=== PATIENT | male | born 1995 | race Caucasian/White ===

== ENCOUNTER 2017-01-20 22:33 | Emergency (ER) | payer OTHER ==
[2017-01-20] MEDS ORDERED: NS 1,000 ML IV ONE (22:45)
--- NOTE | 2017-01-20 22:52 | EDPHY ---
General Narrative: CHIEF COMPLAINT: Syncope, closed head injury HISTORY OF PRESENT ILLNESS: Patient says that he had to beers this evening and was starting to smoke marijuana. He said he "took one hit and was sitting down when I tried to stand up and went down." He describes a possible syncopal episode while standing from a seated position. He does not know the exact details of the event. He struck his forehead on the wall and then on the ground. He has no headache. He has no neck pain or stiffness. No nausea or vomiting. No confusion at this point but is amnestic to events. Amnesia consist of approximately 5-10 minutes. No injury elsewhere alcohol intake is usual for him and not excessive for him. No other substances use. Previous history of 2 episodes of syncope that were diagnosed as a vasovagal episode by joint sealer. No other associated complaints or modifying factors. REVIEW OF SYSTEMS: Ten systems reviewed and are negative unless otherwise noted in the HPI PERTINENT MEDICAL HISTORY: Prior vasovagal syncope EXAMINATION General Appearance: Alert, no distress Head: normocephalic. Superficial abrasion midline the forehead. No laceration. No ecchymosis. No Graves sign. No raccoon eyes. No depression or hematoma. Eyes: Pupils equal and round, no conjunctival pallor or injection. EOMs intact. ENT, Mouth: Mucous membranes moist. Uvula midline. No erythema or edema. No hemotympanum. Neck: Normal inspection, supple, non-tender. No midline tenderness painless range of motion all planes. Supple and nonrigid Respiratory: Lungs are clear to auscultation. No wheezing, rhonchi or crackles. Cardiovascular: Regular rate and rhythm. No murmur. Pulses intact distally. Gastrointestinal: Abdomen is soft and nontender Neurological: A&O, nonfocal, normal gait. Strength symmetric in all 4 limbs. No pronator drift. No dysmetria. Normal mental status. Skin: Warm and dry, no rash. Superficial abrasion as noted above. Extremities: Nontender, no pedal edema Psychiatric: Mood and affect normal DIFFERENTIAL DIAGNOSES: Including but not limited to syncope, vasovagal episode, closed head injury, contusion, abrasion MDM: 10:45 p.m. Reports of syncopal episode with a brief period of amnesia prior to the actual fall. He describes syncope during the active standing up from a seated position , consistent with previous vasovagal syncopal episodes. He is in no acute distress. Neuro exam is well within normal limits. Small abrasion of the forehead. 11:45 p.m. Patient remains comfortable, in no acute distress with stable vital signs. Laboratory studies have been sent but are not yet being run. EKG as reviewed by Dr. Thomas is unremarkable. Chest x-ray is reviewed by me is unremarkable without acute findings. I discussed the case with Dr. Thomas. Should all his laboratory studies returned normal, he will be discharged home to follow up with Cardiology and primary care physician. If there are any abnormalities Dr. Thomas will follow up on this. Patient will likely be able to be discharged home for outpatient follow-up. I have handed the patient over to Dr. Thomas at this time. Please see her note for final disposition. SUPERVISION: Patient was evaluated in conjunction with the supervising physician. Please see their note for details. (Carlton Summers) Medical Decision Making: PHYSICIAN DOCUMENTATION: The patient was evaluated and managed by the Physician Exhibit Cleaner. My co- signature indicates that I have reviewed this chart and I agree with the findings and plan of care as documented. I am the secondary supervising physician. 12:30 a.m.- Patient was monitored in the emergency room with no events on telemetry. Labs have returned and are unremarkable. He feels well and was able to walk around the emergency room without any difficulty. He will be discharged in good condition with follow-up with his PMD as needed. (Gabriela Thomas) - Diagnostics Imaging Results: Imaging Impressions Chest X-Ray 01/20/17 22:52 Impression: Negative frontal chest radiograph. - Objective Vital Signs: Initial Vital Signs Temperature (C) 36.5 C 01/20/17 22:45 Heart Rate 60 01/20/17 22:45 Respiratory Rate 16 01/20/17 22:45 Blood Pressure 105/72 01/20/17 22:45 O2 Sat (%) 94 01/20/17 22:45 O2 Delivery Mode Room Air Allergies/Adverse Reactions: acetaminophen [From Vicodin] Allergy (Verified 01/20/17 22:59) hydrocodone [From Vicodin] Allergy (Verified 01/20/17 22:59) Home Medications: Medication Instructions Recorded NK [No Known Home Meds] 01/20/17 Laboratory Results: Laboratory Results 01/20/17 23:15 01/20/17 23:15 01/20/17 01/20/17 23:15 23:15 WBC 8.30 10^3/uL 10^3/uL (3.80-9.50) RBC 4.62 10^6/uL 10^6/uL (4.40-6.38) Hgb 15.1 g/dL g/dL (13.7-17.5) Hct 45.3 % % (40.0-51.0) MCV 98.1 fL fL (81.5-99.8) MCH 32.7 pg pg (27.9-34.1) MCHC 33.3 g/dL g/dL (32.4-36.7) RDW 12.0 % % (11.5-15.2) Plt Count 194 10^3/uL 10^3/uL (150-400) MPV 12.0 fL H fL (8.7-11.7) Neut % (Auto) 48.0 % % (39.3-74.2) Lymph % (Auto) 40.8 % % (15.0-45.0) [place] % (Auto) 6.1 % % (4.5-13.0) Eos % (Auto) 4.1 % % (0.6-7.6) Baso % (Auto) 0.6 % % (0.3-1.7) Nucleat RBC Rel Count 0.0 % % (0.0-0.2) Absolute Neuts (auto) 3.98 10^3/uL 10^3/uL (1.70-6.50) Absolute Lymphs (auto) 3.39 10^3/uL H 10^3/uL (1.00-3.00) Absolute Monos (auto) 0.51 10^3/uL 10^3/uL (0.30-0.80) Absolute Eos (auto) 0.34 10^3/uL 10^3/uL (0.03-0.40) Absolute Basos (auto) 0.05 10^3/uL 10^3/uL (0.02-0.10) Absolute Nucleated RBC 0.00 10^3/uL 10^3/uL (0-0.01) Immature Gran % 0.4 % % (0.0-1.1) Immature Gran # 0.03 10^3/uL 10^3/uL (0.00-0.10) Sodium 143 mEq/L mEq/L (134-144) Potassium 3.8 mEq/L mEq/L (3.5-5.2) Chloride 105 mEq/L mEq/L (97-110) Carbon Dioxide 23 mEq/l mEq/l (22-31) Anion Gap 15 mEq/L mEq/L (8-16) BUN 9 mg/dL mg/dL (7-23) Creatinine 0.9 mg/dL mg/dL (0.7-1.3) Estimated GFR > 60 Glucose 96 mg/dL mg/dL (70-100) Calcium 9.9 mg/dL mg/dL (8.5-10.4) Troponin I < 0.012 ng/mL ng/mL (0-0.034) Medications Given: Discontinued Medications Sodium Chloride (Ns) 1,000 mls @ 0 mls/hr IV ONCE ONE PRN Reason: Wide Open Stop: 01/20/17 22:46 Last Admin: 01/20/17 23:24 Dose: 1,000 mls Departure - Departure Disposition: Home, Routine, Self-Care Clinical Impression: Syncope and collapse Head injury Qualifiers: Encounter type: initial encounter Qualified Code(s): S09.90XA - Unspecified injury of head, initial encounter Condition: Good Instructions: Syncope (ED), Concussion (ED), Head Injury (ED) Additional Instructions: Wound care as discussed pain Referrals: Patient,NotPresent [Unknown] - As per Instructions Martin Acevedo DO [Doctor of Osteopathy] - As per Instructions
[2017-01-20 23:04] VITALS: RESP 16; TEMP 97.7
--- NOTE | 2017-01-20 23:12 | CPEKG ---
Heart Rate: 50 RR Interval: 1200 P-R Interval: 192 QRSD Interval: 98 QT Interval: 436 QTC Interval: 398 P [place]: 64 QRS [place]: 97 T Wave [place]: 57 EKG Severity - OTHERWISE NORMAL ECG - EKG Impression: SINUS RHYTHM EKG Impression: BORDERLINE RIGHT AXIS DEVIATION Electronically Signed By: Gabriela Thomas 21-Jan-2017 03:44:50
[2017-01-20 23:22] VITALS: PULSE 61
[2017-01-20 23:58] LABS: % IMMATURE GRANULYOCYTES 0.4 % (0.0-1.1); ABSOLUTE IMMATURE GRANULOCYTES 0.03 10^3/uL (0.00-0.10); ADD DIFF? NO; ADD MORPH? NO; ADD SCAN? NO; ATYPICAL LYMPHOCYTE FLAG 30 (0-99); FRAGMENT RBC FLAG 0 (0-99); HEMATOCRIT 45.3 % (40.0-51.0); HEMOGLOBIN 15.1 g/dL (13.7-17.5); LEFT SHIFT FLG 0 (0-99); LIPEMIA HEMOLYSIS FLAG 80 (0-99); MEAN CELL HEMOGLOBIN 32.7 pg (27.9-34.1); MEAN CELL HEMOGLOBIN CONCENTR. 33.3 g/dL (32.4-36.7); MEAN CELL VOLUME 98.1 fL (81.5-99.8); PLATELET CLUMPS FLAG 0 (0-99); PLATELET COUNT 194 10^3/uL (150-400); RED BLOOD CELL COUNT 4.62 10^6/uL (4.40-6.38)
[2017-01-21 00:07] LABS: ANION GAP 15 mEq/L (8-16); CALCIUM 9.9 mg/dL (8.5-10.4); CARBON DIOXIDE 23 mEq/l (22-31); CHLORIDE 105 mEq/L (97-110); CREATININE 0.9 mg/dL (0.7-1.3); GLOMERULAR FILTRATION RATE > 60; GLUCOSE 96 mg/dL (70-100); POTASSIUM 3.8 mEq/L (3.5-5.2); SODIUM 143 mEq/L (134-144)
[2017-01-21 00:19] LABS: TROPONIN I < 0.012 ng/mL (0-0.034)
[2017-01-21 00:40] VITALS: BP 102/63; O2SAT 95
== END 2017-01-21 00:39 | disposition home or self-care (01) ==
DX: S09.90XA Unspecified injury of head, initial encounter (principal); R55 Syncope and collapse; W22.8XXA Striking against or struck by other objects, initial encounter

== ENCOUNTER → 2017-01-27 | Outpatient (CLI) | payer OTHER | LOC: CIMAGING 12:24 | PROVIDERS: ATTEND Internal Medicine | DX: R07.81 Pleurodynia (principal) | CPT/HCPCS: 71100-PO ==

== ENCOUNTER 2017-02-04 12:46 | Emergency (ER) | payer OTHER ==
--- NOTE | 2017-02-04 13:09 | CPEKG ---
Heart Rate: 80 RR Interval: 750 QRSD Interval: 90 QT Interval: 384 QTC Interval: 443 QRS [place]: 88 T Wave [place]: 68 EKG Severity - ABNORMAL ECG - EKG Impression: NSR Electronically Signed By: Ambrose Sierra 04-Feb-2017 21:17:06
--- NOTE | 2017-02-04 13:30 | EDPHY ---
H & P Time Seen by Provider: 02/04/17 13:13 HPI/ROS: Chief complaint. Chest pain HPI. 21-year-old male with epigastric pain and maybe slightly to the left of the epigastrium for approximately 1 month. It comes and goes. Today has lasted an hour and a half follow now has resolved. He occasionally has faint feeling when the pain is bad. He describes it as sharp without radiation. It is worse with movement. Better with burping. No change with antacids. Slight nausea and slight shortness of breath when the pain is intense otherwise no vomiting or diarrhea. No fever. History peptic ulcer disease. Alcohol last night. ROS Constitutional. no fever/chills, no weakness Eyes. no problems with vision ENT. no sore throat, no nasal drainage Cardiovascular. no chest pain Respiratory. Shortness of breath when pain is bad Abdominal. Epigastric abdominal pain with occasional nausea . no problems urinating MS. no calf pain/swelling, no neck/back pain, no joint pain Skin. no rash Lymph. no swollen glands Neuro. Lightheaded with pain is bad Past Medical/Surgical History: Previous vasovagal syncope, tonsillectomy Social History: Single, nonsmoker, recent alcohol Smoking Status: Never smoked Physical Exam: General Appearance: Alert well-developed male mild distress vital signs are stable Eyes: Pupils equal and round no pallor or injection. ENT, Mouth: Mucous membranes are moist. Respiratory: There are no retractions, lungs are clear to auscultation. Cardiovascular: Regular rate and rhythm. Gastrointestinal: Abdomen is soft mild tenderness in the epigastric region. Normal bowel sounds. No masses Neurological: Awake and alert, sensory and motor exams grossly normal. Skin: Warm and dry, no rashes. Musculoskeletal: Neck is supple nontender. Extremities symmetrical, full range of motion. Psychiatric: Patient is oriented X 3, there is no agitation. Constitutional: Initial Vital Signs Temperature (C) 36.4 C 02/04/17 12:50 Heart Rate 72 02/04/17 12:50 Respiratory Rate 18 02/04/17 12:50 Blood Pressure 118/75 02/04/17 12:50 O2 Sat (%) 99 02/04/17 12:50 O2 Delivery Mode Nasal Cannula O2 (L/minute) 1 Allergies/Adverse Reactions: acetaminophen [From Vicodin] Allergy (Verified 02/04/17 12:49) hydrocodone [From Vicodin] Allergy (Verified 02/04/17 12:49) Home Medications: Medication Instructions Recorded Esomeprazole Mag Trihydrate 40 mg PO DAILY #14 cap. 02/04/17 [Nexium] Medical Decision Making - Diagnostics EKG Interpretation: EKG interpreted by me shows normal sinus rhythm with normal interval and axis. QRS is normal there is no significant ST elevation or depression. There is no arrhythmia. The rate is 80 Procedures: IV normal saline, GI cocktail ED Course/Re-evaluation: Re-evaluation 2:10 p.m.--without symptoms now. Just getting the GI cocktail Patient and I discussed lab results, EKG findings, treatment plan including criteria for return importance of follow-up and further evaluation. He expresses understanding and agreement Some relief from GI cocktail. At 2:35 p.m. patient is without symptoms Differential Diagnosis: I suspect that this is gastritis or peptic ulcer disease. It has been a chronic problem over a month. He has normal workup. He has normal EKG and negative troponin and D-dimer. I also did consider acute coronary syndrome and pulmonary embolus. - Data Points Laboratory Results: Laboratory Results 02/04/17 13:15 02/04/17 13:15 02/04/17 02/04/17 02/04/17 13:15 13:15 13:15 WBC 5.48 10^3/uL 10^3/uL (3.80-9.50) RBC 5.02 10^6/uL 10^6/uL (4.40-6.38) Hgb 16.4 g/dL g/dL (13.7-17.5) Hct 46.5 % % (40.0-51.0) MCV 92.6 fL fL (81.5-99.8) MCH 32.7 pg pg (27.9-34.1) MCHC 35.3 g/dL g/dL (32.4-36.7) RDW 11.9 % % (11.5-15.2) Plt Count 204 10^3/uL 10^3/uL (150-400) MPV 11.3 fL fL (8.7-11.7) Neut % (Auto) 54.6 % % (39.3-74.2) Lymph % (Auto) 31.0 % % (15.0-45.0) [place] % (Auto) 9.5 % % (4.5-13.0) Eos % (Auto) 3.8 % % (0.6-7.6) Baso % (Auto) 0.9 % % (0.3-1.7) Nucleat RBC Rel Count 0.0 % % (0.0-0.2) Absolute Neuts (auto) 2.99 10^3/uL 10^3/uL (1.70-6.50) Absolute Lymphs (auto) 1.70 10^3/uL 10^3/uL (1.00-3.00) Absolute Monos (auto) 0.52 10^3/uL 10^3/uL (0.30-0.80) Absolute Eos (auto) 0.21 10^3/uL 10^3/uL (0.03-0.40) Absolute Basos (auto) 0.05 10^3/uL 10^3/uL (0.02-0.10) Absolute Nucleated RBC 0.00 10^3/uL 10^3/uL (0-0.01) Immature Gran % 0.2 % % (0.0-1.1) Immature Gran # 0.01 10^3/uL 10^3/uL (0.00-0.10) D-Dimer < 0.27 ug/mLFEU ug/mLFEU (0.00-0.50) Sodium 142 mEq/L mEq/L (134-144) Potassium 4.1 mEq/L mEq/L (3.5-5.2) Chloride 102 mEq/L mEq/L (97-110) Carbon Dioxide 24 mEq/l mEq/l (22-31) Anion Gap 16 mEq/L mEq/L (8-16) BUN 14 mg/dL mg/dL (7-23) Creatinine 0.9 mg/dL mg/dL (0.7-1.3) Estimated GFR > 60 Glucose 78 mg/dL mg/dL (70-100) Calcium 10.2 mg/dL mg/dL (8.5-10.4) Troponin I < 0.012 ng/mL ng/mL (0-0.034) Lipase 194.0 IU/L IU/L (23-300) Medications Given: Discontinued Medications Al Hydroxide/Mg Hydroxide (Maalox Susp) 30 ml PO ONCE ONE Stop: 02/04/17 13:41 Last Admin: 02/04/17 14:10 Dose: 30 ml Hyoscyamine Sulfate (Levsin, Hyomax-Sl) 0.25 mg PO ONCE ONE Stop: 02/04/17 13:41 Last Admin: 02/04/17 14:10 Dose: 0.25 mg Lidocaine (Lidocaine 2% Viscous) 15 ml PO ONCE ONE Stop: 02/04/17 13:41 Last Admin: 02/04/17 14:10 Dose: 15 ml Departure - Departure Disposition: Home, Routine, Self-Care Clinical Impression: Abdominal pain Qualifiers: Abdominal location: epigastric Qualified Code(s): R10.13 - Epigastric pain Condition: Good Instructions: Gastritis (ED) Additional Instructions: Take Nexium daily to help soothe and he will stomach. May supplement this with Maalox or Mylanta. Caution with aspirin, alcohol, Advil as these are stomach wall irritants. Return for worsening pain, fever, vomiting. Recheck in 2-3 days if not improving. I will also give you the name of machine greaser and encourage you to call make an appointment for follow-up. Referrals: Jaswant Brown MD [Primary Care Provider] - As per Instructions Lenny Hirsch MD [place] [place] - 5-7 days, call for appt. Prescriptions: Esomeprazole Mag Trihydrate [Nexium] 40 mg PO DAILY #14 cap.
[2017-02-04] MEDS ORDERED: LIDOCAINE 2% VISCOUS 15 ML UDCUP PO ONE (13:40)
[2017-02-04] MEDS ORDERED: MAG HYDROX/AL HYDROX/SIMETH 30 ML UDCUP PO ONE (13:40)
[2017-02-04] MEDS ORDERED: HYOSCYAMINE SULFATE 0.125 MG TAB PO ONE (13:40)
[2017-02-04 13:46] LABS: % IMMATURE GRANULYOCYTES 0.2 % (0.0-1.1); ABSOLUTE IMMATURE GRANULOCYTES 0.01 10^3/uL (0.00-0.10); ADD DIFF? NO; ADD MORPH? NO; ADD SCAN? NO; ATYPICAL LYMPHOCYTE FLAG 0 (0-99); FRAGMENT RBC FLAG 0 (0-99); HEMATOCRIT 46.5 % (40.0-51.0); HEMOGLOBIN 16.4 g/dL (13.7-17.5); LEFT SHIFT FLG 0 (0-99); LIPEMIA HEMOLYSIS FLAG 90 (0-99); MEAN CELL HEMOGLOBIN 32.7 pg (27.9-34.1); MEAN CELL HEMOGLOBIN CONCENTR. 35.3 g/dL (32.4-36.7); MEAN CELL VOLUME 92.6 fL (81.5-99.8); MEAN PLATELET VOLUME 11.3 fL (8.7-11.7); PLATELET CLUMPS FLAG 40 (0-99); PLATELET COUNT 204 10^3/uL (150-400); RED BLOOD CELL COUNT 5.02 10^6/uL (4.40-6.38); RED CELL DISTRIBUTION WIDTH 11.9 % (11.5-15.2)
[2017-02-04 13:53] LABS: ANION GAP 16 mEq/L (8-16); CALCIUM 10.2 mg/dL (8.5-10.4); CARBON DIOXIDE 24 mEq/l (22-31); CHLORIDE 102 mEq/L (97-110); CREATININE 0.9 mg/dL (0.7-1.3); GLOMERULAR FILTRATION RATE > 60; GLUCOSE 78 mg/dL (70-100); POTASSIUM 4.1 mEq/L (3.5-5.2); SODIUM 142 mEq/L (134-144)
[2017-02-04 14:04] LABS: TROPONIN I < 0.012 ng/mL (0-0.034)
[2017-02-04 14:23] VITALS: BP 132/86; PULSE 90; RESP 20; TEMP 98.6; O2SAT 100
== END 2017-02-04 14:55 | disposition home or self-care (01) ==
DX: R10.13 Epigastric pain (principal)

== ENCOUNTER 2017-03-15 21:56 | Emergency (ER) | payer OTHER ==
[2017-03-15 22:03] VITALS: TEMP 98.4
[2017-03-15] MEDS ORDERED: NS 1,000 ML IV ONE (22:46)
[2017-03-15] MEDS ORDERED: ONDANSETRON 4 MG/2 ML VIAL ONE (22:53)
[2017-03-15] MEDS ORDERED: ONDANSETRON 4 MG/2 ML VIAL IVP ONE (22:53)
[2017-03-15 23:07] LABS: % IMMATURE GRANULYOCYTES 0.6 % (0.0-1.1); ABSOLUTE IMMATURE GRANULOCYTES 0.03 10^3/uL (0.00-0.10); ADD DIFF? NO; ADD MORPH? NO; ADD SCAN? NO; ATYPICAL LYMPHOCYTE FLAG 50 (0-99); FRAGMENT RBC FLAG 0 (0-99); HEMATOCRIT 44.5 % (40.0-51.0); HEMOGLOBIN 15.2 g/dL (13.7-17.5); LEFT SHIFT FLG 0 (0-99); LIPEMIA HEMOLYSIS FLAG 90 (0-99); MEAN CELL HEMOGLOBIN 32.8 pg (27.9-34.1); MEAN CELL HEMOGLOBIN CONCENTR. 34.2 g/dL (32.4-36.7); MEAN CELL VOLUME 95.9 fL (81.5-99.8); PLATELET CLUMPS FLAG 0 (0-99); PLATELET COUNT 168 10^3/uL (150-400); RED BLOOD CELL COUNT 4.64 10^6/uL (4.40-6.38); RED CELL DISTRIBUTION WIDTH 12.4 % (11.5-15.2)
[2017-03-15 23:31] LABS: ANION GAP 12 mEq/L (8-16); CALCIUM 9.5 mg/dL (8.5-10.4); CARBON DIOXIDE 25 mEq/l (22-31); CHLORIDE 102 mEq/L (97-110); CREATININE 0.7 mg/dL (0.7-1.3); GLOMERULAR FILTRATION RATE > 60; GLUCOSE 93 mg/dL (70-100); POTASSIUM 4.1 mEq/L (3.5-5.2); SODIUM 139 mEq/L (134-144)
[2017-03-15] MEDS ORDERED: LORazepam 2 MG/ML INJ IVP ONE (23:37)
--- NOTE | 2017-03-15 23:57 | EDPHY ---
H & P Time Seen by Provider: 03/15/17 22:42 HPI/ROS: CHIEF COMPLAINT: Feeling shaky HISTORY OF PRESENT ILLNESS: 21-year-old male presents to the emergency department by private vehicle feeling very shaky. Patient states that he drank 8 or 9 beers the last few evenings. States tonight he was just sitting at home watching TV and then developed sudden onset of feeling very tremulous. He denies headache. Denies any reported trauma. Denies chest pain or difficulty breathing. States since arrival to the emergency department, his symptoms have stopped. He denies any other substance abuse. No treatment at home. REVIEW OF SYSTEMS: Constitutional: No fever, no chills. Eyes: No double or blurry vision. ENT: No sore throat. Respiratory: No cough, no shortness of breath. Cardiac: No chest pain. Gastrointestinal: No abdominal pain, vomiting or diarrhea. Genitourinary: No dysuria. Musculoskeletal: No neck or back pain. Skin: No rashes. Neurological: No headache. Past Medical/Surgical History: Tonsillectomy, right ear surgery Social History: Single, student Smoking Status: Never smoked Physical Exam: General Appearance: Alert, no distress. Vital signs are stable. Patient is not tremulous on exam. Eyes: Pupils equal and round. Extraocular motions are all intact. ENT: Mouth: Mucous membranes moist. Respiratory: No wheezing, rhonchi, or rales, lungs are clear to auscultation. Cardiovascular: Regular rate and rhythm. Gastrointestinal: Abdomen is soft and nontender, no masses, no rebound or guarding, bowel sounds normal. Neurological: Alert and oriented x 3, cranial nerves II through XII grossly intact Skin: Warm and dry, no rashes. Musculoskeletal: Nontender to palpate along the cervical, thoracic or lumbar spine. Neck is supple. Extremities: Full range of motion and no peripheral edema. Psychiatric: Patient is oriented X 3, there is no agitation. Constitutional: Initial Vital Signs Temperature (C) 36.9 C 03/15/17 22:00 Heart Rate 90 03/15/17 22:00 Respiratory Rate 14 03/15/17 22:00 Blood Pressure 117/80 03/15/17 22:00 O2 Sat (%) 99 03/15/17 22:00 O2 Delivery Mode Room Air Allergies/Adverse Reactions: acetaminophen [From Vicodin] Allergy (Verified 02/04/17 12:49) hydrocodone [From Vicodin] Allergy (Verified 02/04/17 12:49) Home Medications: Medication Instructions Recorded NK [No Known Home Meds] 03/15/17 Medical Decision Making ED Course/Re-evaluation: The patient is concerned that he may be dehydrated from drinking a large amount of alcohol. His vital signs are stable. He is not vomiting. He does however feel nauseous. An IV was established the patient was given IV Zofran. The patient was still feeling a bit nauseous. He was given 1 mg of IV Ativan. I doubt this patient has a seizure. He was conscious the entire time. He does remember the seizure. He was conversational. His friend at bedside who witnessed this. Differential Diagnosis: Including but not limited to dehydration, electrolyte abnormality, seizure - Data Points Laboratory Results: Laboratory Results 03/15/17 23:00 03/15/17 23:00 03/15/17 03/15/17 23:00 23:00 WBC 4.84 10^3/uL 10^3/uL (3.80-9.50) RBC 4.64 10^6/uL 10^6/uL (4.40-6.38) Hgb 15.2 g/dL g/dL (13.7-17.5) Hct 44.5 % % (40.0-51.0) MCV 95.9 fL fL (81.5-99.8) MCH 32.8 pg pg (27.9-34.1) MCHC 34.2 g/dL g/dL (32.4-36.7) RDW 12.4 % % (11.5-15.2) Plt Count 168 10^3/uL 10^3/uL (150-400) MPV 11.0 fL fL (8.7-11.7) Neut % (Auto) 53.2 % % (39.3-74.2) Lymph % (Auto) 29.5 % % (15.0-45.0) [place] % (Auto) 9.3 % % (4.5-13.0) Eos % (Auto) 6.8 % % (0.6-7.6) Baso % (Auto) 0.6 % % (0.3-1.7) Nucleat RBC Rel Count 0.0 % % (0.0-0.2) Absolute Neuts (auto) 2.57 10^3/uL 10^3/uL (1.70-6.50) Absolute Lymphs (auto) 1.43 10^3/uL 10^3/uL (1.00-3.00) Absolute Monos (auto) 0.45 10^3/uL 10^3/uL (0.30-0.80) Absolute Eos (auto) 0.33 10^3/uL 10^3/uL (0.03-0.40) Absolute Basos (auto) 0.03 10^3/uL 10^3/uL (0.02-0.10) Absolute Nucleated RBC 0.00 10^3/uL 10^3/uL (0-0.01) Immature Gran % 0.6 % % (0.0-1.1) Immature Gran # 0.03 10^3/uL 10^3/uL (0.00-0.10) Sodium 139 mEq/L mEq/L (134-144) Potassium 4.1 mEq/L mEq/L (3.5-5.2) Chloride 102 mEq/L mEq/L (97-110) Carbon Dioxide 25 mEq/l mEq/l (22-31) Anion Gap 12 mEq/L mEq/L (8-16) BUN 14 mg/dL mg/dL (7-23) Creatinine 0.7 mg/dL mg/dL (0.7-1.3) Estimated GFR > 60 Glucose 93 mg/dL mg/dL (70-100) Calcium 9.5 mg/dL mg/dL (8.5-10.4) Medications Given: Discontinued Medications Sodium Chloride (Ns) 1,000 mls @ 0 mls/hr IV ONCE ONE PRN Reason: Wide Open Stop: 03/15/17 22:47 Last Admin: 03/15/17 23:00 Dose: 1,000 mls Lorazepam (Ativan Injection) 1 mg IVP EDNOW ONE Stop: 03/15/17 23:38 Last Admin: 03/15/17 23:40 Dose: 1 mg Ondansetron HCl (Zofran) 4 mg IVP EDNOW ONE Stop: 03/15/17 22:54 Last Admin: 03/15/17 23:00 Dose: 4 mg Departure - Departure Disposition: Home, Routine, Self-Care Clinical Impression: Shakiness, Nausea Condition: Good Instructions: Acute Nausea and Vomiting (ED) Additional Instructions: Clear liquids and then slowly advance diet as tolerated. Referrals: Jaswant Brown MD [Primary Care Provider] - As per Instructions
[2017-03-16 00:37] VITALS: BP 123/87; PULSE 91; RESP 16; O2SAT 98
== END 2017-03-16 00:37 | disposition home or self-care (01) ==
DX: R25.1 Tremor, unspecified (principal); R11.0 Nausea
CPT/HCPCS: 96374; J2060; J2405